=== PATIENT | female | born 1980 | race Caucasian/White ===

== ENCOUNTER 2017-03-28 16:16 | Emergency (ER) | payer OTHER ==
[~2017-03-28] VITALS: Ht 167.6 cm; Wt 58.0 kg
[2017-03-28 16:20] VITALS: TEMP 36.8; Ht 167.6 cm; Wt 58.0 kg
--- NOTE | 2017-03-28 16:43 | EMERGENCY ROOM VISIT NOTE ---
History Report prepared by Nandini: Russell Townsend Under the Supervision of: Dr. Juvencio Herrera M.D. First contact with patient: 16:26 Chief Complaint: RASH Stated Complaint: PAIN IN GUMS,BACTERIAL INFECTION,BLISTERS IN MOUTH History of Present Illness The patient is a 36 year old female with history of an abdominal hernia, who presents to the Emergency Room with complaints of pain in the left jaw and gums that onset 3 days prior to arrival. The patient states that she was diagnosed with strep throat last week and originally prescribed Amoxicillin. With her strep throat she was experiencing fevers and headaches, these symptoms have resolved. She went back to [facility] on Sunday and had her prescription switched to Clindamycin. She has been on this antibiotic for three days. She denies any current fevers or chills, or abdominal pains. Her LNMP was 1 week ago. Source of History: patient Onset: 3 days PEDIATRIC LICENSED PRACTICAL NURSE Position: jaw (Left jaw/gums) Quality: other (Sores in the mouth) Associated Symptoms: No fevers, No chills, No abdominal pain Review of Systems See HPI for pertinent positives and negatives. A total of ten systems were reviewed and were otherwise negative. Past Medical & Surgical Medical Problems: (1) Abdominal hernia Family History No pertinent family history secondary to case specifics. Social History Smoking Status: Never Smoker Housing Status: lives with significant other Occupation Status: [employer] student Current/Historical Medications Scheduled Ascorbic Acid (Vitamin C), 500 MG PO DAILY Clindamycin Hcl (Cleocin), 300 MG PO Q6 Magic Swizzle (Magic Swizzle - SUCRALFA/ALUM/MAG/DIPHEN/LIDO), 3-4 TSP PO ACHS Probiotic Product (Probiotic), 1 CAP DAILY Scheduled PRN Acetaminophen (Tylenol), 500 MG PO Q6 PRN for Pain or Fever Allergies Coded Allergies: No Known Allergies (Unverified , 03/28/17) Physical Exam Vital Signs Date Time Temp Pulse Resp B/P (MAP) Pulse Ox O2 Delivery O2 Flow Rate FiO2 03/28/17 17:18 90 18 115/65 99 03/28/17 16:20 36.8 86 16 111/81 99 Room Air Physical Exam GENERAL: Awake, alert, well-appearing, NAD HENT: Normocephalic, atraumatic. NO trismus of the jaw. No sublingual, submental , or submandibular swelling. Scant posterior tissue to tooth 17. Scant ulcerations to the hard palate. EYES: Normal conjunctiva. Sclera non-icteric. NECK: Supple. No nuchal rigidity. FROM. No signs of meningismus. RESPIRATORY: CTAB, no rhonchi, wheezing, crackles CARDIAC: RRR, no MRG ABDOMEN: Soft, NTND, BS+ MSK: No chest wall TTP, no LE edema NEURO: GCS 15, CN 2-12 intact, moves all 4s on command SKIN: No rash or jaundice noted. Medical Decision & Procedures ED Course 1629: The patient was evaluated in room A12. A complete history and physical exam was performed. 170: I reevaluated the patient. Discussed results and discharge instructions: She verbalized understanding and agreement. The patient is ready for discharge. Medical Decision The patient is a 36 year old female with history of an abdominal hernia, who presents to the Emergency Room with complaints of pain in the left jaw and gums that onset 3 days prior to arrival. Differential Diagnosis includes: wisdom tooth eruption, dental abscess, sera's , RPA, PEDIATRIC LICENSED PRACTICAL NURSE Patient was seen and evaluated at the bedside. Patient was complaining of some mild discomfort to the left mandibular posterior jaw. Patient states that she had noted what may been a possible infection. Patient did have some ulcerations around the mouth was recently switched from amoxicillin to clindamycin that she was originally recently diagnosed with strep throat. Patient is a nonsmoker does not use any immunosuppressants, chronic steroids, no history of diabetes. Upon exam the patient has no obvious odontogenic infection. Patient does have some small amount of tissue posterior to the left most posterior molar. No indication for drainage at this time. Patient does not have any trismus. Patient was told to take Motrin and Tylenol round-the- clock. Patient may use some Magic mouthwash in addition to some Orajel. Patient is to follow with her dentist as needed. Patient was told to continue antibiotics and avoid things like acidic or spicy foods is the may irritate tissue. Patient was also told to continue to practice good oral hygiene. Patient was agreeable to plan of care. Patient was deemed suitable for outpatient follow-up and treatment at this time. I do not believe that she requires any blood work or advanced imaging. Patient was given strict follow-up , discharge, and return precautions. All questions were answered. Patient was deemed suitable for outpatient follow-up at this time. Patient agreed with the plan of care and was safely discharged home. The chart was completed utilizing [employer] Speech voice recognition software. Grammatical errors, random word insertions, pronoun errors, and incomplete sentences are an occasional consequence of this system due to software limitations, ambient noise, and hardware issues. Any formal questions or concerns about the content, text, or information contained within the body of this dictation should be directly addressed to the physician for clarification. Impression Primary Impression: Pain, dental Scribe Attestation The scribe's documentation has been prepared under my direction and personally reviewed by me in its entirety. I confirm that the note above accurately reflects all work, treatment, procedures, and medical decision making performed by me. Departure Information Dispostion Home / Self-Care Prescriptions Magic Swizzle (Magic Swizzle - SUCRALFA/ALUM/MAG/DIPHEN/LIDO) 240 Ml Susp 3-4 TSP PO ACHS for 7 Days, #240 ML 100ml Sucralfate 50ml Maalox 50ml Diphenhydramine 40ml 2% Aq. Lidocaine Swish and Swallow Prov: Juvencio Herrera M.D. 03/28/17 Referrals No Doctor, Assigned (PCP) Patient Instructions ED Tooth Pain, My [facility], [place] Teeth Impacted Additional Instructions Please return to the emergency department if you have worsening or recurrent symptoms not amenable to at-home treatment. Please call for a follow-up appointment with her primary care physician. Please take your medications as prescribed. If you have other concerns and/or complaints please feel free to also call your primary care physician's office or return the ED for further evaluation, management, and treatment. Please use the mouthwash as prescribed. Do not swallow this. If you use the magic swizzle, please do not use oragel as they both contain lidocaine. Please continue take your antibiotics. Please continue to practice good oral hygiene. You may take 600 mg Ibuprofen every 6 hours as needed for pain with food for no more than 2 consecutive days. You may take tylenol 1000 mg every 6 hours as needed for pain. You may take motrin and tylenol separately or at the same time. Take your medications as prescribed. If taking an antibiotic consider taking a probiotic and/or eating yogurt, but at the least, please take with food as it can cause upset stomach. You have been examined and treated today on an emergency basis only. This is not a substitute for, or an effort to provide, complete comprehensive medical care. It is impossible to recognize and treat all injuries or illnesses in a single emergency department visit. It is therefore important that you follow up closely with [facility], your PCP, and/or your specialist(s). Call as soon as possible for an appointment. Thank you for your time and consideration. I look forward to speaking with you again soon. Please don't hesitate to call us if you have any questions.
[2017-03-28] MEDS ORDERED: ACET-1256 PO (16:48)
[2017-03-28] MEDS ORDERED: ASCO500T3 PO (16:48)
[2017-03-28] MEDS ORDERED: MISCCAP80 (16:48)
[2017-03-28] MEDS ORDERED: CLIN150C PO (16:48)
[2017-03-28] MEDS ORDERED: MBXC PO (17:05)
[2017-03-28 17:18] VITALS: BP 115/65; PULSE 90; O2SAT 99
== END 2017-03-28 17:19 | disposition home or self-care (01) ==
LOC: C.EDB 16:18 → C.EDA 17:19
DX: K08.89 Other specified disorders of teeth and supporting structures (principal); S00.522A Blister (nonthermal) of oral cavity, initial encounter; X58.XXXA Exposure to other specified factors, initial encounter

== ENCOUNTER 2018-08-23 08:21 | Inpatient (IN) ==
[2018-08-23] MEDS ORDERED: OXYTOCIN 30 UNITS/500 ML BAG IV PRN ×2 (08:36→09:42)
[2018-08-23] MEDS ORDERED: LACTATED RINGER'S 1,000 ML IV PRN (08:36)
[2018-08-23] MEDS ORDERED: BUPIVACAINE 0.25% 30 ML VIAL ONE (08:45)
[2018-08-23] MEDS ORDERED: ePHEDrine sulfate 50 MG/ML AMP ONE (08:45)
[2018-08-23] MEDS ORDERED: fentaNYL 2MCG/ML ROPIV 1.25MG/ML 100 ML BAG EPI ONE (08:46)
[2018-08-23] MEDS ORDERED: fentaNYL citrate 100 MCG/2 ML VIAL ONE (08:46)
--- NOTE | 2018-08-23 08:52 | History & Physical Report ---
Date of Service August 23, 2018 Assessment & Plan (1) 40 weeks gestation of : Spontaneous labor, labs/IV/EFM/toco. Patient desires epidural - discussed with her that delivery is likely imminent, but will try for epidural if there is time. She desires private cord banking collection. History of Present Illness Chief Complaint: spontaneous labor Primary Care Provider: NO PCP 37yo @ 40 1 with regular contractions every 2 minutes, SROM for clear fluid at home at approx 0700 this morning. Feeling increasing pressure and urge to push. + movement. No vaginal bleeding. complicated by GDMA1, anemia. Allergies Allergy/AdvReac Type Severity Reaction Status Date / Time No Known Allergies Allergy Unverified 03/28/17 16:49 Home Medications Home Medications Medication Instructions Recorded Confirmed Type ASCORBIC ACID (VITAMIN C) 500 mg PO DAILY #0 03/28/17 History Acetaminophen (Tylenol) 500 mg PO Q6 PRN #0 tab 03/28/17 History CLINDAMYCIN HCL (CLEOCIN) 300 mg PO Q6 #0 cap 03/28/17 History PROBIOTIC PRODUCT (PROBIOTIC) 1 cap DAILY #0 03/28/17 History Review of Systems All systems reviewed & are unremarkable except as noted in HPI & below Physical Exam Physical Exam: Gen: AAOx3 NAD CV: RRR S1 S2 L: CTAB Abd: soft, gravid, NTTP Ext: no edema SVE 7-8/100/+1 FHT Cat 1 [place] Q 2-3 min
[2018-08-23 08:56] LABS: Hematocrit (blood only) 34.8 % (37-47); Hemoglobin 11.9 g/dL (12.0-16.0); Mean Corpuscular Volume 97.2 fL (80-100); Mean Platelet Volume 11.4 fL (7.4-10.4); Platelet Count 128 K/uL (130-400); RDW Coefficient of Variation 13.1 % (11.5-14.5); RDW Standard Deviation 46.2 fL (36.4-46.3); Red Blood Count 3.58 M/uL (4.2-5.4); White Blood Count 8.89 K/uL (4.8-10.8)
[2018-08-23 09:07] LABS: Mean Corpuscular Hgb Conc 34.2 g/dL (32-36)
[2018-08-23] MEDS ORDERED: ACETAMINOPHEN 325 MG TAB PO PRN (09:42)
[2018-08-23] MEDS ORDERED: BISACODYL 10 MG SUPP PR PRN (09:42)
[2018-08-23] MEDS ORDERED: HYDROCORTISONE ACETATE 25 MG SUPP PR PRN (09:42)
[2018-08-23] MEDS ORDERED: BENZOCAINE 20% AER SPR 82.5 GM CAN EXT PRN (09:42)
[2018-08-23] MEDS ORDERED: OXYCODONE/ACETAMINOPHEN 5mg/325mg TAB PO PRN (09:42)
[2018-08-23] MEDS ORDERED: SUPERCREAM 0.870% 15 GM JAR EXT PRN (09:42)
[2018-08-23] MEDS ORDERED: DIPHTHERIA/TETANUS/PERTUSSIS 0.5 ML SYR/VIAL IM ONE (09:42)
[2018-08-23] MEDS ORDERED: IBUPROFEN 600 MG TAB PO ONE (09:45)
[2018-08-23] MEDS: IBUPROFEN 600 MG TAB PO PRN ×3 (09:50→23:07)
--- NOTE | 2018-08-23 11:46 | Delivery Summary ---
DATE OF OPERATION: 08/23/2018 The patient is a 37-year-old 2, para 1-0-0-1 white female who presented at 40 and 1/7 weeks with regular contractions starting at 0600 hours. Membranes ruptured approximately 0700 hours for clear fluid. She presented at 7-8 cm dilated and rapidly went to full dilation. She pushed effectively over intact perineum for delivery of a viable female infant. Mouth and nasopharynx were suctioned on the mother's abdomen. There was vigorous crying. The infant was moving all 4 limbs. After obtaining a cord blood sample for donation, the placenta was expressed intact with a 3-vessel cord. First-degree perineal laceration was repaired using 1% lidocaine and 3-0 chromic in usual fashion. Estimated blood loss was 250 mL. Mother and were doing well after delivery. I attest to the content of the Intraoperative Record and any orders documented therein. Any exception s are noted below.
[2018-08-23] MEDS: DOCUSATE SODIUM 100 MG CAP PO SCH (20:29)
--- NOTE | 2018-08-24 06:18 | Obstetrical Progress Note ---
Date of Service <Martin Noel MD - Last Filed: 08/24/18 06:17> August 24, 2018 Assessment & Plan <Martin Noel MD - Last Filed: 08/24/18 06:17> (1) Normal vaginal delivery: Mamta is a 37yo F who presented at 40+1 with SROM in labor now s/p p recocious PPD#1 - GBS negative, O+, RI - gDM-diet controlled - Feels well today. Eating well, voiding well, ambulating well. - Pain well controlled with ibuprofen 600mg Q4H PRN / APAP +/- Oxycodone. - Routine care - Baby under observation for 48 hours by peds, not ready for dc today - After discharge will have [address] Jain. Subjective <Martin Noel MD - Last Filed: 08/24/18 06:17> Ambulation: ambulating normally Voiding: no voiding problems Passing Gas:: Yes Diet Tolerance:: regular diet Lochia:: Moderate Feeding Type:: breast feeding Current Pain Level(1-10): 3 Review of Systems Denies fever, chills, sweats Denies shortness of breath, difficulty breathing, chest pain, palpitations, ch est pressure. Denies breast pain. Denies dysuria. Denies headache. Physical Exam <Martin Noel MD - Last Filed: 08/24/18 06:17> General: Alert, oriented. No acute distress. Cardiac: Regular rate and rhythm, no murmurs/rubs/gallops. Respiratory: Clear to auscultation anterior and posteriorly, no wheezes/rales/rhonchi. No increased work of breathing. Symmetrical chest rise. No respiratory distress. Abdomen: Soft, nontender, nondistended. Bowel sounds present. Uterus: Uterine fundus firm, palpable 2cm below umbilicus. Lower Extremities: No lower extremity edema or swelling. No deep calf pain. Jesica's negative bilaterally. Results & Data <Martin Noel MD - Last Filed: 08/24/18 06:17> Vital Signs (Past 12 Hours) Vital Signs Temp Pulse Resp BP Pulse Ox 08/24/18 02:50 37.1 C 76 16 105/65 98 08/24/18 00:05 37 C 74 16 102/66 97 08/23/18 19:15 36.9 C 76 18 116/70 <Milagros Moe MD, FACOG - Last Filed: 08/24/18 07:06> Co-Signing Physician Notes Resident Physician Supervision Note: I was present with Dr. Martin Noel PGY1 during the history and exam. I discussed the case with the resident and agree with the findings and plan as documented in the note. Any exceptions or clarifications are listed here: [None] Documented By: Milagros Moe MD, MARGUERITEOG Resident Activity Tracking <Martin Noel MD - Last Filed: 08/24/18 06:17> Resident Involvement: Resident Care Provided Care Provided: Adult Hospital Medicine
[2018-08-24] MEDS: IBUPROFEN 600 MG TAB PO PRN ×3 (06:42→20:59)
[2018-08-24 06:56] LABS: Hematocrit (blood only) 34.2 % (37-47); Hemoglobin 11.6 g/dL (12.0-16.0); Mean Corpuscular Hgb Conc 33.9 g/dL (32-36); Mean Corpuscular Volume 97.4 fL (80-100); Mean Platelet Volume 11.3 fL (7.4-10.4); Platelet Count 131 K/uL (130-400); RDW Coefficient of Variation 13.2 % (11.5-14.5); RDW Standard Deviation 46.6 fL (36.4-46.3); Red Blood Count 3.51 M/uL (4.2-5.4); White Blood Count 10.03 K/uL (4.8-10.8)
[2018-08-24] MEDS ORDERED: PRENATAL VITAMIN 1 TAB ONE (07:48)
[2018-08-24] MEDS: DOCUSATE SODIUM 100 MG CAP PO SCH ×2 (08:01→20:59)
[2018-08-24] MEDS: PRENATAL VITAMIN 1 TAB PO SCH (08:01)
[2018-08-24] MEDS ORDERED: BISACODYL 5 MG TABEC PO SCH (20:00)
[2018-08-25] MEDS: PRENATAL VITAMIN 1 TAB PO SCH (08:08)
[2018-08-25] MEDS: DOCUSATE SODIUM 100 MG CAP PO SCH (08:08)
--- NOTE | 2018-08-25 08:56 | Obstetrical Progress Note ---
Date of Service August 25, 2018 Assessment & Plan (1) Normal vaginal delivery: PPD#2 doing well, discharge home today. Instructions reviewed. Followup 6w in office. Subjective Ambulation: ambulating normally Voiding: no voiding problems Passing Gas:: Yes Diet Tolerance:: regular diet Lochia:: Moderate Feeding Type:: breast feeding Physical Exam Constitutional WD/WN, vitals as above no acute distress Respiratory normal respiratory effort Cardiovascular Rate/Rhythm: regular rate and regular rhythm Gastrointestinal (Abdomen) Inspection/Auscultation: abdomen normal to inspection; abdomen not distended Percussion/Palpation: abdomen soft Genitourinary OB Exam Abdomen: + fundal height Fundus: + firm; not tender Results & Data Vital Signs (Past 12 Hours) Vital Signs Temp Pulse Resp BP Pulse Ox 08/25/18 08:15 36.6 C 73 18 110/77 97 08/25/18 00:30 36.8 C 68 16 117/73 98
== END 2018-08-25 11:15 | disposition home or self-care (01) | DRG 807 ==
LOC: OPB 08:21 → 4S1 08:24 → 4S2 11:50